=== PATIENT | female | born 1990 | race Caucasian/White ===

== ENCOUNTER 2016-12-01 11:06 | Emergency (ER) | payer OTHER ==
[2016-12-01 11:40] VITALS: BP 116/71
[2016-12-01] MEDS ORDERED: OXYCODONE-ACETAMINOPHEN 5-325 MG TABLET PO ONE (12:08)
[2016-12-01] MEDS ORDERED: ONDANSETRON 4 MG TAB.RAPDIS PO ONE (12:08)
--- NOTE | 2016-12-01 12:10 | ER Document Report ---
ED Medical Screen (RME) - General Chief Complaint: Neck Pain >24hrs old Stated Complaint: NECK PAIN Time Seen by Provider: 12/01/16 12:00 Notes: 26-year-old female patient with long history of migraine headaches comes complaining of neck pain. She reports onset of week ago of pain over the midline posterior neck. It hurts to hold her head up, it hurts to flex extend and rotate her neck. There is no nausea or vomiting. There is minimal if any headache. She was seen at [facility], no imaging studies done, did have a lumbar puncture 1 week ago. She does notice it feels better when she is laying flat so that her head is supported and not moving. Exam shows minimal tenderness over the upper posterior cervical spinous processes. Not really tender over the posterior cervical muscles. There appears to be full flexion extension and rotation but it causes considerable pain to do so. I have greeted and performed a rapid initial assessment of this patient. A comprehensive ED assessment and evaluation of the patient, analysis of test results and completion of the medical decision making process will be conducted by additional ED providers. TRAVEL OUTSIDE OF THE [place] IN LAST 30 DAYS: No - Related Data Allergies/Adverse Reactions: adhesive tape [Adhesive Tape] Allergy (Verified 12/01/16 11:35) Coconut * [Coconut] Allergy (Verified 12/01/16 11:35) metoclopramide HCl [From Reglan] Allergy (Verified 12/01/16 11:35) Hives promethazine HCl [From Phenergan] Allergy (Verified 12/01/16 11:35) Hives Past Medical History - Past Medical History Cardiac Medical History: Reports: Hx Hypertension - preeclampsia in past Neurological Medical History: Reports: Hx Migraine, Hx Seizures Renal/ Medical History: Reports: Hx Ovarian Cysts. 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 She was given the results of the CT scan. She decided she did not want to wait to be seen and evaluated in the main ER, as there is quite a delay today. She elected to leave AMA. I saw her walking out, carrying a child in a car carrier seat without difficulty , the soft collar she was provided was not on at this time. She was telling the person with her that she would be filing a formal complaint. - Vital Signs Vital signs: Temp Pulse Resp BP Pulse Ox 98.1 F 81 20 116/71 100 12/01/16 11:38 12/01/16 11:38 12/01/16 11:38 12/01/16 11:38 12/01/16 11:38 - Laboratory Result Diagrams: 12/01/16 13:29 12/01/16 13:29 Laboratory results interpreted by me: 12/01/16 13:29 RDW 15.5 H
[2016-12-01 13:50] LABS: ABSOLUTE LYMPHOCYTES (AUTO) 1.3 10^3/uL (0.5-4.7); ABSOLUTE MONOCYTES (AUTO) 0.3 10^3/uL (0.1-1.4); ABSOLUTE NEUT (AUTO) 2.7 10^3/uL (1.7-8.2); BASOPHILS % (AUTO) 0.5 % (0-2); EOSINOPHILS % (AUTO) 0.8 % (0-6); HEMATOCRIT 40.4 % (36.0-47.0); HEMOGLOBIN 13.3 g/dL (12.0-15.5); HGB HCT DIFFERENCE -0.5; LYMPHOCYTES % (AUTO) 30.1 % (13-45); MEAN CORPUSCULAR HGB CONC 32.9 g/dL (32.0-36.0); MEAN CORPUSCULAR VOLUME 88 fl (80-97); MONOCYTES % (AUTO) 6.6 % (3-13); RED BLOOD COUNT 4.58 10^6/uL (3.72-5.28); RED CELL DISTRIBUTION WIDTH 15.5 % (11.5-14.0); WHITE BLOOD COUNT 4.4 10^3/uL (4.0-10.5)
--- NOTE | 2016-12-01 14:26 | RADIOLOGY REPORT (SQ) ---
EXAM DESCRIPTION: CT SOFT TISSUE NECK WITH COMPLETED DATE/TIME: 12/01/2016 1:56 pm REASON FOR STUDY: neck pain COMPARISON: None. TECHNIQUE: Post IV contrasted scanning from skull base through lung apices with review of bone, soft tissue and lung windows. Reconstructed coronal and sagittal MPR images reviewed. All images stored on PACS. All CT scanners at this facility use dose modulation, iterative reconstruction, and/or weight based d osing when appropriate to reduce radiation dose to as low as reasonably achievable (ALARA). [facility]: Dose Right [facility]: CareDose [facility]: Dose Right [facility]: Teradose 4D [facility]: [employer] CONTRAST TYPE AND DOSE: contrast/concentration: Isovue 370.00 mg/ml; Total Contrast Delivered: 75.0 ml; Total Saline Delivered: 55.0 ml RENAL FUNCTION: None required. The patient is less than 50 years old. RADIATION DOSE: Up-to-date CT equipment and radiation dose reduction techniques were employed. CTDIv ol: 8.3 mGy. DLP: 275 mGy-cm. . LIMITATIONS: None. FINDINGS: SKULL BASE: Intact. Inferior brain parenchyma in the field of view unremarkable MAJOR SALIVARY GLANDS: No solid or cystic masses. No inflammatory changes. LYMPHADENOPATHY: No adenopathy. MUCOSAL MASSES OR ASYMMETRY: No mucosal masses or asymmetry. LARYNX/CORDS: No abnormal findings. VASCULAR STRUCTURES: The major vessels are patent. LUNG APICES: Clear. BONES: Intact. No cervical spine fracture or malalignment. No significant disc bulge or central or foraminal encroachment. THYROID: Normal size. No masses. PARANASAL SINUSES: Clear. OTHER: Benign contrast enhancement in the cervical epidural venous plexus IMPRESSION: NO SIGNIFICANT FINDING IN THE SOFT TISSUES OF THE NECK. TECHNICAL DOCUMENTATION: JOB ID: [id number] Quality ID # [id number]: Final reports with documentation of one or more dose reduction techniques (e.g., Au tomated exposure control, adjustment of the mA and/or kV according to patient size, use of iterative reconstruction technique) 2010 [employer]- All Rights Reserved
[2016-12-01 14:27] LABS: ERYTHROCYTE SEDIMENTATION RATE 7 mm/hr (0-20)
[2016-12-01 15:24] LABS: BLOOD UREA NITROGEN 8 mg/dL (7-20); CALCIUM 9.6 mg/dL (8.4-10.2); GLUCOSE 96 mg/dL (75-110)
[2016-12-01 15:25] LABS: ALANINE AMINOTRANSFERASE 45 U/L (9-52); ALBUMIN 4.5 g/dL (3.5-5.0); ALKALINE PHOSPHATASE 59 U/L (38-126); ANION GAP 15 (5-19); ASPARTATE AMINO TRANSFERASE 15 U/L (14-36); BILIRUBIN,TOTAL 0.5 mg/dL (0.2-1.3); CARBON DIOXIDE 23 mmol/L (22-30); CHLORIDE 104 mmol/L (98-107); CREATININE RESULT 0.59 mg/dL (0.52-1.25); POTASSIUM 3.8 mmol/L (3.6-5.0); SODIUM 141.8 mmol/L (137-145)
[2016-12-01 15:26] LABS: BILIRUBIN,DIRECT 0.3 mg/dL (0.0-0.4); TOTAL PROTEIN 7.3 g/dL (6.3-8.2)
== END 2016-12-01 15:11 | disposition left against medical advice (07) ==
LOC: ER 11:06
DX: M54.2 Cervicalgia (principal); Z86.69 Personal history of other diseases of the nervous system and sense organs; Z98.890 Other specified postprocedural states; Z91.048 Other nonmedicinal substance allergy status; Z91.018 Allergy to other foods; Z88.8 Allergy status to other drugs, medicaments and biological substances; Z53.29 Procedure and treatment not carried out because of patient's decision for other reasons
CPT/HCPCS: 99284; 36415; 84703; 85025; 85652; 80053; 70491; L0120; S0119

== ENCOUNTER 2017-01-09 07:08 | Emergency (ER) | payer OTHER ==
[2017-01-09 07:15] VITALS: BP 106/67
[2017-01-09] MEDS ORDERED: HYDROCODONE/ACETAMINOPHEN 5-325 MG TABLET PO ONE (07:35)
--- NOTE | 2017-01-09 07:37 | ER Document Report ---
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 Patient complains of right shoulder pain with range of motion. Patient is right -hand dominant. Associated Symptoms: Other - shoulder injury Exacerbated by: Movement Relieved by: Denies Similar symptoms previously: No Recently seen / treated by doctor: No - ROS ROS below otherwise negative: Yes Systems Reviewed and Negative: Yes All other systems reviewed and negative - NEURO Neurology: DENIES: Headache, Weakness - RESPIRATORY Respiratory: DENIES: Trouble Breathing - GASTROINTESTINAL Gastrointestinal: DENIES: Nausea - MUSCULOSKELETAL Musculoskeletal: REPORTS: Extremity pain. DENIES: Back Pain - DERM Skin Color: Normal Skin Problems: None Past Medical History - General Information source: Patient - Social History Smoking Status: Never Smoker Frequency of alcohol use: Occasional Drug Abuse: None Occupation: [employer] Lives with: Family Family History: Arthritis, CAD, CVA, DM, Hyperlipidemia, Hypertension, Malignancy, Thyroid Disfunction - Past Medical History Cardiac Medical History: Reports: Hx Hypertension - preeclampsia in past Neurological Medical History: Reports: Hx Migraine, Hx Seizures Renal/ Medical History: Reports: Hx Ovarian Cysts. 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 IN LAST 30 DAYS: No - HEENT HEENT: Atraumatic, Normocephalic - NECK Neck: Normal Inspection, Supple. negative: Lymphadenopathy-Left, Lymphadenopathy-Right - RESPIRATORY Respiratory: Breath Sounds Normal, No Respiratory Distress, Chest Non-Tender O2 Sat by Pulse Oximetry: 100 - CARDIOVASCULAR Cardiovascular: Regular Rate, Regular Rhythm, No Murmur Pulses: Normal: Radial - BACK Back: Normal Inspection - MUSCULOSKELETAL/EXTREMETIES Musculoskeletal/Extremeties: MAEW, Tender - right posterior shoulder joint pain with ROM, no deformity, no dislocation, No Edema. negative: Eccymosis - NEURO Level of Consciousness: Awake, Alert, Appropriate Motor/Sensory: No Motor Deficit, No Sensory Deficit - DERM Integumentary: Warm, Dry, No Rash Course - Vital Signs Vital signs: Temp Pulse Resp BP Pulse Ox 98.1 F 74 16 106/67 100 01/09/17 07:14 01/09/17 07:14 01/09/17 07:14 01/09/17 07:14 01/09/17 07:14 - Diagnostic Test Radiology reviewed: Image reviewed, Reports reviewed Procedures - Immobilization Right Shoulder Pre-Proc Neuro Vasc Exam: Normal Immobilizer type: Shoulder immobilizer Performed by: Provider Post-Proc Neuro Vasc Exam: Normal Alignment checked and good: Yes Discharge - Discharge Clinical Impression: Sprain of shoulder, right Qualifiers: Encounter type: initial encounter Shoulder sprain type: unspecified sprain Qualified Code(s): S43.401A - Unspecified sprain of right shoulder joint, initial encounter Condition: Stable Disposition: HOME, SELF-CARE Instructions: Shoulder Injury ([facility]), Temporary Sling ([facility]), Ice & Elevation ( [facility]), Oral Narcotic Medication ([facility]) Additional Instructions: Return immediately for any new or worsening symptoms Followup with your primary care provider, call tomorrow to make a followup appointment Follow-up with orthopedic doctor for any continued pain or problems Wear sling while awake only for the next 4 days and then remove, if still having pain follow-up with orthopedic doctor Prescriptions: Hydrocodone/Acetaminophen [[place] 5-325 Tablet] 1 each PO Q4 PRN #15 tablet PRN Reason: Forms: Restricted Release Referrals: [facility] [Provider Group] - Follow up as needed
--- NOTE | 2017-01-09 08:23 | RADIOLOGY REPORT (SQ) ---
EXAM DESCRIPTION: SHOULDER RIGHT 2 OR MORE VIEWS COMPLETED DATE/TIME: 01/09/2017 8:00 am REASON FOR STUDY: fall COMPARISON: None. NUMBER OF VIEWS: Three views. TECHNIQUE: Internal rotation, external rotation, and Y view images acquired of the right shoulder. LIMITATIONS: None. FINDINGS: MINERALIZATION: Normal. BONES: No acute fracture or dislocation. No worrisome bone lesions. JOINTS: No dislocation. VISUALIZED LUNGS AND RIBS: No pneumothorax. No rib fracture. SOFT TISSUES: No radiopaque foreign body. OTHER: No other significant finding. IMPRESSION: NEGATIVE STUDY OF THE RIGHT SHOULDER. NO RADIOGRAPHIC EVIDENCE OF ACUTE INJURY. TECHNICAL DOCUMENTATION: JOB ID: [id number] [employer]- All Rights Reserved
== END 2017-01-09 08:34 | disposition home or self-care (01) ==
LOC: ER 07:08
DX: S43.401A Unspecified sprain of right shoulder joint, initial encounter (principal); M25.511 Pain in right shoulder; W19.XXXA Unspecified fall, initial encounter
CPT/HCPCS: 99283

== ENCOUNTER 2017-06-25 09:24 | Emergency (ER) | payer OTHER ==
[2017-06-25 09:31] VITALS: BP 105/60
== END 2017-06-25 09:37 | disposition left against medical advice (07) ==
LOC: ER 09:24
DX: Z53.21 Procedure and treatment not carried out due to patient leaving prior to being seen by health care provider (principal); M25.561 Pain in right knee

== ENCOUNTER 2017-07-15 09:32 | Emergency (ER) | payer OTHER ==
--- NOTE | 2017-07-15 09:46 | ER Document Report ---
ED Medical Screen (RME) - General Chief Complaint: Abdominal Pain Stated Complaint: LOWER ABDOMINAL PAIN Time Seen by Provider: 07/15/17 09:43 Mode of Arrival: Wheelchair Information source: Patient TRAVEL OUTSIDE OF THE [place] IN LAST 30 DAYS: No - HPI Patient complains to provider of: right lower abdominal pain Onset: Just prior to arrival Onset/Duration: Sudden Quality of pain: Stabbing Associated Symptoms: Diarrhea, Nausea Similar symptoms previously: No Notes: 07/15/17 09:44 27-year-old female states that she was driving home from [employer] when she got acute onset of sharp right lower quadrant stabbing pain.Is associated with diarrhea.The pain is constant but varies in intensity.Patient had a 13 months ago. She denies any abnormal vaginal discharge, urinary complaints or trauma to the area. No fevers. - Related Data Allergies/Adverse Reactions: adhesive tape [Adhesive Tape] Allergy (Verified 06/25/17 09:24) Coconut * [Coconut] Allergy (Verified 06/25/17 09:24) metoclopramide HCl [From Reglan] Allergy (Verified 06/25/17 09:24) Hives Penicillins Allergy (Verified 06/25/17 09:24) Past Medical History - Social History Chew tobacco use (# tins/day): No Frequency of alcohol use: None Drug Abuse: None - Past Medical History Cardiac Medical History: Reports: Hx Hypertension - preeclampsia in past Neurological Medical History: Reports: Hx Migraine, Hx Seizures Renal/ Medical History: Reports: Hx Ovarian Cysts. 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
[2017-07-15 10:14] LABS: ABSOLUTE EOSINOPHILS # (AUTO) 0.1 10^3/uL (0.0-0.6); ABSOLUTE LYMPHOCYTES (AUTO) 1.5 10^3/uL (0.5-4.7); ABSOLUTE MONOCYTES (AUTO) 0.4 10^3/uL (0.1-1.4); ABSOLUTE NEUT (AUTO) 3.2 10^3/uL (1.7-8.2); BASOPHILS % (AUTO) 0.5 % (0-2); EOSINOPHILS % (AUTO) 1.1 % (0-6); HEMATOCRIT 39.5 % (36.0-47.0); HEMOGLOBIN 13.7 g/dL (12.0-15.5); MEAN CORPUSCULAR HEMOGLOBIN 30.7 pg (27.0-33.4); MEAN CORPUSCULAR HGB CONC 34.7 g/dL (32.0-36.0); MEAN CORPUSCULAR VOLUME 89 fl (80-97); PLATELET COUNT 274 10^3/uL (150-450); RED BLOOD COUNT 4.46 10^6/uL (3.72-5.28); SEGMENTED NEUTROPHILS % (AUTO) 62.4 % (42-78); TOTAL CELLS COUNTED % (AUTO) 100 %; WHITE BLOOD COUNT 5.1 10^3/uL (4.0-10.5)
[2017-07-15 10:20] LABS: APPEARANCE,URINE SLIGHTLY-CLOUDY; BILIRUBIN,URINE NEGATIVE (NEGATIVE); COLOR,URINE YELLOW; GLUCOSE, URINE NEGATIVE (NEGATIVE); KETONES,URINE NEGATIVE (NEGATIVE); LEUKOCYTE ESTERASE,URINE NEGATIVE (NEGATIVE); NITRITE,URINE NEGATIVE (NEGATIVE); PROTEIN,URINE NEGATIVE (NEGATIVE); UROBILINOGEN,URINE NEGATIVE mg/dL (<2.0)
[2017-07-15 10:32] LABS: ALANINE AMINOTRANSFERASE 19 U/L (9-52); ALBUMIN 4.6 g/dL (3.5-5.0); ALKALINE PHOSPHATASE 37 U/L (38-126); ANION GAP 10 (5-19); ASPARTATE AMINO TRANSFERASE 16 U/L (14-36); BILIRUBIN,TOTAL 0.5 mg/dL (0.2-1.3); BLOOD UREA NITROGEN 10 mg/dL (7-20); CALCIUM 9.7 mg/dL (8.4-10.2); CARBON DIOXIDE 27 mmol/L (22-30); CHLORIDE 105 mmol/L (98-107); GLUCOSE 94 mg/dL (75-110); POTASSIUM 4.1 mmol/L (3.6-5.0); TOTAL PROTEIN 7.2 g/dL (6.3-8.2)
--- NOTE | 2017-07-15 10:48 | ER Document Report ---
ED General - General Chief Complaint: Abdominal Pain Stated Complaint: LOWER ABDOMINAL PAIN Time Seen by Provider: 07/15/17 09:43 Mode of Arrival: Wheelchair Notes: 27-year-old female patient to the emergency department chief complaint of sudden onset of diarrhea and lower abdominal pain. Denies any fever, chills, sweats. Denies any anorexia or vomiting. States that she was driving and the pain was sharp. Has previous history of kidney stones. Previous history of ovarian cysts. 13 months ago.. Patient denies any vaginal discharge. No active vaginal bleeding. Last menstrual period June 29. TRAVEL OUTSIDE OF THE [place] IN LAST 30 DAYS: No - HPI Onset: Just prior to arrival Onset/Duration: Better Quality of pain: Sharp Severity: Moderate Pain Level: 2 Associated symptoms: Diarrhea Exacerbated by: Denies Relieved by: Denies - Related Data Allergies/Adverse Reactions: adhesive tape [Adhesive Tape] Allergy (Verified 07/15/17 09:44) Coconut * [Coconut] Allergy (Verified 07/15/17 09:44) metoclopramide HCl [From Reglan] Allergy (Verified 07/15/17 09:44) Hives Penicillins Allergy (Verified 07/15/17 09:44) Past Medical History - General Information source: Patient - Social History Smoking Status: Former Smoker Chew tobacco use (# tins/day): No Frequency of alcohol use: None Drug Abuse: None Lives with: Family Family History: Arthritis, CAD, CVA, DM, Hyperlipidemia, Hypertension, Malignancy, Thyroid Disfunction Patient has suicidal ideation: No Patient has homicidal ideation: No - Past Medical History Cardiac Medical History: Reports: Hx Hypertension - preeclampsia in past Neurological Medical History: Reports: Hx Migraine, Hx Seizures Renal/ Medical History: Reports: Hx Ovarian Cysts. 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 Psychiatric Medical History: Reports: Hx Depression Past Surgical History: Reports: Hx Gynecologic Surgery - elective x 2, Hx Orthopedic Surgery - R knee - Immunizations Immunizations up to date: Yes Hx Diphtheria, Pertussis, Tetanus Vaccination: Yes Review of Systems - Review of Systems Constitutional: denies: Fever, Malaise, Weakness EENT: denies: Eye pain, Throat pain, Difficulty swallowing Cardiovascular: denies: Chest pain, Palpitations, Heart racing, Lightheaded Respiratory: denies: Cough, Hurts to breathe, Hemoptysis, Short of breath, Wheezing Gastrointestinal: Abdominal pain, Diarrhea. denies: Nausea, Vomiting, Constipation, Black stools, Rectal bleeding Genitourinary: denies: Burning, Dysuria, Discharge, Hematuria Female Genitourinary: Last menstrual period - 06/29/17. denies: Vaginal discharge, Vaginal bleeding, Vaginal odor Musculoskeletal: denies: Back pain, Joint pain, Muscle pain, Muscle stiffness, Neck pain Hematologic/Lymphatic: denies: Blood clots, Easy bleeding, Easy bruising, Swollen glands Neurological/Psychological: denies: Confusion, Seizure, Numbness Physical Exam - Vital signs Vitals: Temp Pulse Resp BP Pulse Ox 97.7 F 88 20 100/57 L 97 07/15/17 09:38 07/15/17 09:38 07/15/17 09:38 07/15/17 09:38 07/15/17 09:38 Interpretation: Normal - General General appearance: Appears well, Alert Notes: This is an extremely well-appearing female patient resting comfortably on the bed with normal vital signs. Not writhing in pain. - HEENT Head: Normocephalic, Atraumatic Eyes: Normal Pupils: PERRL - Respiratory Respiratory status: No respiratory distress Chest status: Nontender Breath sounds: Normal Chest palpation: Normal - Cardiovascular Rhythm: Regular Heart sounds: Normal auscultation Murmur: No - Abdominal Inspection: Normal Distension: No distension Bowel sounds: Hyperactive Tenderness: Nontender. No: McBurney's point, Mccauley's sign, Guarding, Rebound Organomegaly: No organomegaly - Back Back: Normal, Nontender - Extremities General upper extremity: Normal inspection, Nontender, Normal color, Normal ROM , Normal temperature General lower extremity: Normal inspection, Nontender, Normal color, Normal ROM , Normal temperature, Normal weight bearing. No: Hari's sign - Neurological Neuro grossly intact: Yes Cognition: Normal Orientation: AAOx4 Juanjose Coma Scale Eye Opening: Spontaneous Juanjose Coma Scale Verbal: Oriented [place] Coma Scale Motor: Obeys Commands Juanjose Coma Scale Total: 15 Speech: Normal Motor strength normal: LUE, RUE, LLE, RLE Sensory: Normal - Psychological Associated symptoms: Normal affect, Normal mood - Skin Skin Temperature: Warm Skin Moisture: Dry Skin Color: Normal Course - Re-evaluation Re-evalutation: 07/15/17 10:51 This is an extremely well-appearing female in no acute distress. Labs are unremarkable. Not . Not have a acute surgical abdomen. Do not feel compelled at this time to do advanced imaging studies with such a benign exam. I have explained to the patient that the kurtz to finding out acute pathology with regards to surgical emergency such as appendicitis or cholecystitis is close follow-up exams. Patient was advised if her abdominal pain gets worse in the next 12-24 hours she should return to the emergency department for further evaluation. - Vital Signs Vital signs: Temp Pulse Resp BP Pulse Ox 97.7 F 88 20 100/57 L 97 07/15/17 09:38 07/15/17 09:38 07/15/17 09:38 07/15/17 09:38 07/15/17 09:38 - Laboratory Result Diagrams: 07/15/17 10:00 07/15/17 10:00 Laboratory results interpreted by me: 07/15/17 07/15/17 09:50 10:00 Alkaline Phosphatase 37 L Urine Blood SMALL H Discharge - Discharge Clinical Impression: Diarrhea Qualifiers: Diarrhea type: unspecified type Qualified Code(s): R19.7 - Diarrhea, unspecified Abdominal pain Qualifiers: Abdominal location: generalized Qualified Code(s): R10.84 - Generalized abdominal pain Condition: Good Disposition: HOME, SELF-CARE Instructions: Abdominal Pain ([facility]) Additional Instructions: The most important thing with regards to abdominal pain is getting good close follow-up. Your labs are unremarkable for any acute findings. Your exam today is fairly unremarkable. In the event that your abdominal pain gets worse especially if the pain begins to stay localized in the right upper quadrant or right lower quadrant, you develop high fevers, chills, cannot eat or drink or you have any other concerns then you need to return immediately for repeat evaluation. Prescriptions: Ondansetron [Zofran Odt 4 mg Tablet] 1 - 2 tab PO Q4H PRN #15 tab.rapdis PRN Reason: For Nausea/Vomiting
[2017-07-15 11:07] VITALS: BP 95/59
== END 2017-07-15 11:08 | disposition home or self-care (01) ==
LOC: ER 09:32
DX: R10.84 Generalized abdominal pain (principal); R19.7 Diarrhea, unspecified; R10.30 Lower abdominal pain, unspecified; Z88.0 Allergy status to penicillin; Z87.891 Personal history of nicotine dependence
CPT/HCPCS: 36415; 80053; 81001; 81025; 85025; 99284

== ENCOUNTER 2018-02-09 15:54 | Emergency (ER) | payer SELFPAY ==
[2018-02-09 16:03] VITALS: BP 109/64
--- NOTE | 2018-02-09 16:11 | ER Document Report ---
HPI - HPI Patient complains to provider of: right shoulder pain Onset: Other - chronic Onset/Duration: Persistent Quality of pain: Achy Severity: Severe Pain Level: 4 Context: Presents emergency department with complaints of right shoulder pain. Patient reports she has history of rotator cuff injury. 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 She reports at this time she cannot afford to see the orthopedic. She is asking for a light duty work note. She reports pain with movement. Denies fever vomiting diarrhea Associated Symptoms: None Exacerbated by: Movement Relieved by: Denies Similar symptoms previously: Yes Recently seen / treated by doctor: No Past Medical History - General Information source: Patient - Social History Smoking Status: Current Every Day Smoker Cigarette use (# per day): Yes Frequency of alcohol use: None Drug Abuse: None Occupation: pole dancer Lives with: Family Family History: Arthritis, CAD, CVA, DM, Hyperlipidemia, Hypertension, Malignancy, Thyroid Disfunction - Past Medical History Cardiac Medical History: Reports: Hx Hypertension - preeclampsia in past Neurological Medical History: Reports: Hx Migraine, Hx Seizures Renal/ Medical History: Reports: Hx Ovarian Cysts. 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 IN LAST 30 DAYS: No - HEENT HEENT: Atraumatic, Normocephalic - NECK Neck: Normal Inspection, Supple. negative: Lymphadenopathy-Left, Lymphadenopathy-Right - RESPIRATORY Respiratory: Breath Sounds Normal, No Respiratory Distress - CARDIOVASCULAR Cardiovascular: Regular Rate - MUSCULOSKELETAL/EXTREMETIES Musculoskeletal/Extremeties: Tender - right shoulder ttp, no obvious deformity. Patient complains of pain when attempting to lift her hand above her head. Good radial pulse good cap refill - NEURO Level of Consciousness: Awake, Alert, Appropriate - DERM Integumentary: Warm, Dry Adult Front & Back Diagram: 1 - reports pain when raising her arm above her head passively and actively Course - Re-evaluation Re-evalutation: 02/09/18 She was instructed on the importance of follow-up with orthopedics. She reports that after this week and she will have the $300 to pay the orthopedic. She was instructed on sling ice anti-inflammatories. She verbalized understanding to all instructions. - Vital Signs Vital signs: Temp Pulse Resp BP Pulse Ox 98.4 F 76 18 109/64 99 02/09/18 16:02 02/09/18 16:02 02/09/18 16:02 02/09/18 16:02 02/09/18 16:02 Discharge - Discharge Clinical Impression: Right shoulder pain Qualifiers: Chronicity: chronic Qualified Code(s): M25.511 - Pain in right shoulder Condition: Stable Disposition: HOME, SELF-CARE Instructions: Ibuprofen (General) ([facility]), Ice Packs ([facility]), Rotator Cuff Injury ( [facility]), Sling to be Used ([facility]) Additional Instructions: *You have been evaluated for right shoulder pain, history of rotator cuff injury *Maintain your splint *Rest/Ice/Elevate your shoulder *Follow up with orthopedics within one week-call for an appointment *Take medication as prescribed for pain *Return to ED for worsening condition, changes, needs Prescriptions: Ibuprofen [Motrin 800 mg Tablet] 800 mg PO TID #30 tablet Forms: Special Work Note
[2018-02-09] MEDS ORDERED: KETOROLAC TROMETHAMINE 60 MG/2 ML SDV IM ONE (16:19)
== END 2018-02-09 16:32 | disposition home or self-care (01) ==
LOC: ER 15:54
DX: M25.511 Pain in right shoulder (principal); F17.210 Nicotine dependence, cigarettes, uncomplicated
CPT/HCPCS: 99283; 96372; J1885